=== PATIENT | female | born 1970 | race Caucasian/White ===

== ENCOUNTER 2022-07-05 21:05 | Emergency (ER) | payer MEDICAID ==
[~2022-07-05] VITALS: Ht 172.7 cm; Wt 68.0 kg
[2022-07-06 00:05] LABS: BASOPHILS % 0.3 % (0.0-2.0); EOSINOPHILS % 4.1 % (0.0-5.0); HEMATOCRIT. 37.6 % (36.0-48.0); HEMOGLOBIN. 12.3 g/dL (12.0-16.0); LYMPHOCYTES % 21.9 % (20.0-50.0); MEAN CORPUSCULAR HEMOGLOBIN 28.5 pg (28.0-32.0); MEAN CORPUSCULAR VOLUME 87.1 fL (81.0-99.0); MEAN PLATELET VOLUME 8.6 fl (7.4-10.4); MONOCYTES % 7.6 % (2.0-8.0); NEUTROPHILS % 66.1 % (40.0-76.0); PLATELET 240 x1000/uL (130-400); RED BLOOD CELL COUNT 4.31 mill/uL (4.2-5.4); RED CELL DISTRIBUTION WIDTH 14.9 % (11.6-14.6)
[2022-07-06 00:13] LABS: CHLORIDE 104 mEq/L (98-107)
[2022-07-06 00:16] LABS: HCG SCREEN NEGATIVE
[2022-07-06 00:24] LABS: ETHANOL BLOOD < 10 mg/dL
[2022-07-06 00:35] LABS: *AMPHETAMINES SCREEN URINE NEGATIVE (NEGATIVE); *BARBITURATES SCREEN URINE NEGATIVE (NEGATIVE); *BENZODIAZEPINES SCREEN URINE NEGATIVE (NEGATIVE); *COCAINE SCREEN URINE NEGATIVE (NEGATIVE); CANNABINOID URINE SCREEN NEGATIVE (NEGATIVE); METHADONE URINE SCREEN NEGATIVE (NEGATIVE); OPIATES URINE SCREEN NEGATIVE (NEGATIVE); PHENCYCLIDINE URINE SCREEN NEGATIVE (NEGATIVE)
[2022-07-06] MEDS ORDERED: METH-653 MT (02:16)
[2022-07-06] MEDS ORDERED: IBUP-2029 MT (02:16)
[2022-07-06 02:45] VITALS: BP 142/69
== END 2022-07-06 02:57 | disposition home or self-care (01) ==
LOC: ER 21:05
DX: R07.89 Other chest pain (principal); I10 Essential (primary) hypertension
CPT/HCPCS: 36415; 71045; 80053; 80305; 80320; 81025; 83880; 84484; 84703; 85025; 93005; 99285; Z7610; G0480

== ENCOUNTER 2023-04-05 03:38 | Emergency (ER) | payer MEDICAID ==
[~2023-04-05] VITALS: Ht 170.2 cm; Wt 90.1 kg
[~2023-04-05 03:38] MED LIST: IBUP-2029 MT; METH-653 MT
[2023-04-05] MEDS ORDERED: KETOROLAC 60MG/2ML VIAL IM NR (04:51)
[2023-04-05] MEDS ORDERED: TRAM50TA3 PO (05:00)
[2023-04-05] MEDS ORDERED: NAPR-681 PO (05:00)
[2023-04-05 05:21] VITALS: BP 160/97
== END 2023-04-05 05:24 | disposition home or self-care (01) ==
LOC: ER 03:38
DX: M54.41 Lumbago with sciatica, right side (principal); J45.909 Unspecified asthma, uncomplicated; I10 Essential (primary) hypertension; Z98.890 Other specified postprocedural states
CPT/HCPCS: 96372; 99283; J1885; Z7610